=== PATIENT | female | born 1990 | race Caucasian/White ===

== ENCOUNTER 2019-09-27 22:39 | Emergency (ER) | payer OTHER ==
--- NOTE | 2019-09-27 23:43 | ED Physician Documentation ---
History of Present Illness - Stated complaint Stated Complaint: RASH - Chief complaint Chief Complaint: Allergic Rx - History obtained from History obtained from: Patient (The patient is a 29-year-old female who reports she is otherwise healthy and up to date on all of her immunizations started to notice some urticaria and hives on the lateral arms and legs. She denies fevers, headache, neck pain denies any difficulty breathing or any swelling of the mouth or throat denies any palpitations.) Review of Systems Constitutional: reports: Reviewed and negative Eyes: reports: Reviewed and negative Ears: reports: Reviewed and negative Nose: reports: Reviewed and negative Throat: reports: Reviewed and negative Cardiac: reports: Reviewed and negative Respiratory: reports: Reviewed and negative GI: reports: Reviewed and negative : reports: Reviewed and negative Skin: reports: Rash Musculoskeletal: reports: Reviewed and negative Neurologic: reports: Reviewed and negative Psychiatric: reports: Reviewed and negative Endocrine: reports: Reviewed and negative Immunocompromised: reports: Reviewed and negative PD PAST MEDICAL HISTORY - Past Medical History Past Medical History: No - Past Surgical History Past Surgical History: No - Present Medications Home Medications: Ambulatory Orders Medication Instructions Recorded Confirmed EPINEPHrine [Epipen Jr] 0.15 mg IM ONCE PRN #1 syringe 09/28/19 hydrOXYzine HCL [Hydroxyzine HCl] 25 mg PO BID PRN #10 tablet 09/28/19 predniSONE [Prednisone] 50 mg PO DAILY #7 tablet 09/28/19 - Allergies Allergies/Adverse Reactions: Allergies Allergy/AdvReac Type Severity Reaction Status Date / Time No Known Drug Allergies Allergy Verified 09/27/19 22:42 - Social History Does the pt smoke?: No Smoking Status: Never smoker Does the pt drink ETOH?: No Does the pt have substance abuse?: No - Immunizations Immunizations are current?: No - POLST Patient has POLST: No PD ED PE NORMAL - Vitals Vital signs reviewed: Yes - General General: Alert and oriented X 3, No acute distress - HEENT HEENT: PERRL - Neck Neck: Supple, no meningeal sign - Cardiac Cardiac: RRR, No murmur - Respiratory Respiratory: Clear bilaterally - Abdomen Abdomen: Normal bowel sounds, Soft, Non tender, Non distended - Derm Derm: Warm and dry, Other (There is a diffuse rash on bilateral upper extremities and lower extremities. There areas of erythema that Are smooth and are not raised there is no streaking, no lymphadenopathy there are nontender to touch there is no petechiae or purpura.No crepitus.There is no involvement of the hands or feet.) - Extremities Extremities: No deformity - Neuro Neuro: Alert and oriented X 3 - Psych Psych: Normal mood, Normal affect Results - Vitals Vitals: Vital Signs - 24 hr 09/27/19 09/28/19 22:42 00:54 Temperature 36.5 C Heart Rate 92 76 Respiratory 14 16 Rate Blood Pressure 123/69 118/76 O2 Saturation 100 98 Oxygen O2 Source Room air PD MEDICAL DECISION MAKING - ED course Complexity details: re-evaluated patient (Symptoms have improved, patient would like to be discharged home and follow-up with her primary care provider tomorrow.Patient treated in the emergency department with oral prednisoneShe is provided a prescription for an emergency EpiPen and oral Pepcid., Prednisone and Atarax.) Departure - Departure Disposition: 01 Home, Self Care Clinical Impression: Allergic reaction Qualifiers: Encounter type: initial encounter Qualified Code(s): T78.40XA - Allergy, unspecified, initial encounter Condition: Good Instructions: Urticaria Follow-Up: YOUR, DOCTOR [Other] - 09/28/19 Prescriptions: EPINEPHrine [Epipen Jr] 0.15 mg IM ONCE PRN #1 syringe PRN Reason: Anaphylaxis hydrOXYzine HCL [Hydroxyzine HCl] 25 mg PO BID PRN #10 tablet PRN Reason: Itching predniSONE [Prednisone] 50 mg PO DAILY #7 tablet Discharge Date/Time: 09/28/19 01:22
[2019-09-27] MEDS ORDERED: diphenhydrAMINE 25 MG CAPSULE PO STA (23:52)
[2019-09-27] MEDS ORDERED: predniSONE 20 MG TABLET PO STA (23:52)
[2019-09-27] MEDS ORDERED: FAMOTIDINE 20 MG TABLET PO STA (23:52)
[2019-09-28 00:55] VITALS: BP 118/76
== END 2019-09-28 01:22 | disposition home or self-care (01) ==
LOC: ED 22:39
DX: T78.40XA Allergy, unspecified, initial encounter (principal)
CPT/HCPCS: 99283; A9270; J7512

== ENCOUNTER 2021-03-11 08:00 | Outpatient (CLI) | payer OTHER | END 2021-03-11 23:59 | disposition home or self-care (01) | LOC: LAB.N 08:00 | PROVIDERS: ATTEND Nurse Practitioner | DX: R39.9 Unspecified symptoms and signs involving the genitourinary system (principal) | CPT/HCPCS: 87086 ==

== ENCOUNTER 2023-11-29 10:59 | Outpatient (CLI) | payer OTHER ==
[2023-11-29 11:17] LABS: BASOPHILS % (AUTO) 0.8 %; EOSINOPHILS % (AUTO) 0.6 %; HCT - HEMATOCRIT 45.9 % (37.0-47.0); HGB - HEMOGLOBIN 14.4 g/dL (12.0-16.0); LYMPHOCYTES # (AUTO) 1.9 10^3/uL (1.5-3.5); MEAN CORPUSCULAR HEMOGLOBIN 29.6 pg (27.0-31.0); MEAN CORPUSCULAR HGB CONC 31.4 g/dL (32.0-36.0); MEAN CORPUSCULAR VOLUME 94.3 fL (81.0-99.0); MEAN PLATELET VOLUME 10.1 fL (7.9-10.8); MONOCYTES # (AUTO) 0.3 10^3/uL (0.0-1.0); MONOCYTES % (AUTO) 5.5 %; NEUTROPHILS # (AUTO) 2.9 10^3/uL (1.5-6.6); NEUTROPHILS % (AUTO) 55.9 %; PLT - PLATELET COUNT 260 10^3/uL (130-450); RED BLOOD COUNT 4.87 10^6/uL (4.20-5.40); RED CELL DISTRIBUTION WIDTH 11.9 % (12.0-15.0); WHITE BLOOD COUNT 5.2 x10^3/uL (4.8-10.8)
[2023-11-29 11:43] LABS: THYROID STIMULATING HORMONE 1.18 uIU/mL (0.34-5.60)
[2023-11-29 11:58] LABS: ALBUMIN 4.8 g/dL (3.2-5.5); ALBUMIN/GLOBULIN RATIO 1.8 (1.0-2.2); ALKALINE PHOSPHATASE 37 IU/L (42-121); ALT ALANINE AMINOTRANSFERASE 15 IU/L (10-60); AST ASPARTATE AMINOTRANSFERASE 16 IU/L (10-42); BILIRUBIN,TOTAL 0.7 mg/dL (0.2-1.0); BUN - BLOOD UREA NITROGEN 9 mg/dL (6-20); CALCIUM 9.8 mg/dL (8.5-10.3); CARBON DIOXIDE - CO2 23 mmol/L (21-32); CHLORIDE 106 mmol/L (101-111); CHOL/HDL RATIO 2.6 (<4.4); CHOLESTEROL 189 mg/dL; CREATININE 0.7 mg/dL (0.6-1.3); GFR - MDRD 96 (>89); GLUCOSE 81 mg/dL (74-104); HDL CHOLESTEROL 73 mg/dL; LDL CHOLESTEROL,CALCULATED 103 mg/dL; LDL/HDL RATIO 1.4 (<4.4); SODIUM 138 mmol/L (135-145); TOTAL PROTEIN 7.5 g/dL (6.4-8.9); TRIGLYCERIDES 64 mg/dL (48-352); VLDL CHOLESTEROL 13 mg/dL
== END 2023-11-29 11:00 | disposition home or self-care (01) ==
LOC: LAB 10:59
PROVIDERS: ATTEND Nurse Practitioner Family
DX: N92.6 Irregular menstruation, unspecified (principal); Z13.0 Encounter for screening for diseases of the blood and blood-forming organs and certain disorders involving the immune mechanism
CPT/HCPCS: 36415; 80053; 80061; 83721; 84443; 85025